=== PATIENT | female | born 1935 | race African-American/Black ===

== ENCOUNTER 2017-02-15 20:32 | Emergency (ER) | payer MEDICARE, MEDICAID ==
[~2017-02-15] VITALS: Ht 157.5 cm; Wt 73.0 kg
[2017-02-15] MEDS ORDERED: DEXTROSE 50% WATER 50ML SYRINGE IV ONE (21:00)
[2017-02-15] MEDS ORDERED: SODIUM CHLORIDE 0.9% 1000ML BAG (SEPSIS BOLUS) IV ONE (21:00)
[2017-02-15 21:59] LABS: PROTHROMBIN TIME 10.7 sec (9.4-11.6)
[2017-02-15 22:00] LABS: CHLORIDE 103 mEq/L (98-107)
[2017-02-15 22:02] LABS: BASOPHILS % 0.5 % (0.0-2.0); EOSINOPHILS % 0.3 % (0.0-5.0); HEMATOCRIT. 43.8 % (36.0-48.0); HEMOGLOBIN. 13.9 g/dL (12.0-16.0); LYMPHOCYTES % 10.4 % (20.0-50.0); MEAN CORPUSCULAR VOLUME 82.1 fL (81.0-99.0); MEAN PLATELET VOLUME 8.7 fl (7.4-10.4); MONOCYTES % 4.8 % (2.0-8.0); PLATELET 273 x1000/uL (130-400); RED BLOOD CELL COUNT 5.34 mill/uL (4.2-5.4); RED CELL DISTRIBUTION WIDTH 15.5 % (11.6-14.6)
[2017-02-15 22:03] LABS: CARBON DIOXIDE 25 mEq/L (21-32)
[2017-02-16 00:30] LABS: GLUCOSE URINE TRACE (NEGATIVE); KETONES URINE NEGATIVE (NEGATIVE); LEUKOCYTE ESTERASE URINE NEGATIVE (NEGATIVE); NITRITE URINE NEGATIVE (NEGATIVE); OCCULT BLOOD URINE NEGATIVE (NEGATIVE); PH URINE 5.5 (4.5-8.0); PROTEIN URINE 1+ (NEGATIVE); SPECIFIC GRAVITY URINE 1.024 (1.005-1.030); UROBILINOGEN URINE 0.2 E.U./dL (0.2-1.0)
[2017-02-16 00:31] LABS: CLARITY URINE CLEAR (CLEAR); COLOR URINE YELLOW (YELLOW)
[2017-02-16 00:48] LABS: *AMPHETAMINES SCREEN URINE NEGATIVE (NEGATIVE); *BARBITURATES SCREEN URINE NEGATIVE (NEGATIVE); *BENZODIAZEPINES SCREEN URINE NEGATIVE (NEGATIVE); *COCAINE SCREEN URINE NEGATIVE (NEGATIVE); CANNABINOID URINE SCREEN PRESUMTIVE POSITIVE (NEGATIVE); METHADONE URINE SCREEN NEGATIVE (NEGATIVE); OPIATES URINE SCREEN NEGATIVE (NEGATIVE); PHENCYCLIDINE URINE SCREEN NEGATIVE (NEGATIVE)
[2017-02-16 08:23] VITALS: BP 166/71
== END 2017-02-16 08:24 | disposition home or self-care (01) ==
LOC: ER 22:19
DX: F12.10 Cannabis abuse, uncomplicated (principal); E11.649 Type 2 diabetes mellitus with hypoglycemia without coma; Z79.4 Long term (current) use of insulin
CPT/HCPCS: 36415; 70450; 71010; 80053; 80305; 81001; 82962; 83605; 85025; 85610; 87040; 87086; 93005; 96360; 96361; 99285; C1893; J7030; J7040; J7050

== ENCOUNTER 2018-04-01 14:44 | Inpatient (IN) | payer MEDICARE, MEDICAID ==
[~2018-04-01] VITALS: Ht 154.9 cm; Wt 60.8 kg
[2018-04-01] MEDS ORDERED: SODIUM CHLORIDE 0.9% 1,000 ML IV ONE (15:36)
[2018-04-01 16:58] LABS: BASOPHILS % 0.8 % (0.0-2.0); EOSINOPHILS % 0.1 % (0.0-5.0); HEMATOCRIT. 37.1 % (36.0-48.0); HEMOGLOBIN. 11.9 g/dL (12.0-16.0); LYMPHOCYTES % 9.1 % (20.0-50.0); MEAN PLATELET VOLUME 8.2 fl (7.4-10.4); MONOCYTES % 5.1 % (2.0-8.0); NEUTROPHILS % 84.9 % (40.0-76.0); PLATELET 253 x1000/uL (130-400); RED BLOOD CELL COUNT 4.41 mill/uL (4.2-5.4); RED CELL DISTRIBUTION WIDTH 16.5 % (11.6-14.6)
[2018-04-01 17:07] LABS: CHLORIDE 105 mEq/L (98-107)
[2018-04-01 17:09] LABS: PROTHROMBIN TIME 9.9 sec (9.1-11.1)
[2018-04-01 17:15] LABS: CREATINE KINASE 63 IU/L (26-192)
[2018-04-01] MEDS ORDERED: SODIUM CHLORIDE 0.9% 1000ML BAG (SEPSIS BOLUS) IV ONE (17:45)
[2018-04-01 18:11] LABS: CLARITY URINE CLOUDY (CLEAR); COLOR URINE YELLOW (YELLOW); KETONES URINE TRACE (NEGATIVE); LEUKOCYTE ESTERASE URINE 2+ (NEGATIVE); NITRITE URINE POSITIVE (NEGATIVE); OCCULT BLOOD URINE NEGATIVE (NEGATIVE); PH URINE 6.5 (4.5-8.0); PROTEIN URINE 1+ (NEGATIVE); SPECIFIC GRAVITY URINE 1.013 (1.005-1.030)
[2018-04-01] MEDS ORDERED: CEFTRIAXONE 1 G PREMIX 50 ML IV ONE (18:30)
[2018-04-01 21:40] VITALS: BP 160/67
[2018-04-01 22:00] VITALS: BP 160/67
[2018-04-01] MEDS ORDERED: NA PHOS,M-B/NA PHOS,DI-BA ENEMA 118ML PR PRN (23:00)
[2018-04-01] MEDS ORDERED: MORPHINE SULFATE 4 MG/ML CPJ (NOT FOR IM USE) IV PRN (23:00)
[2018-04-01] MEDS ORDERED: IPRATROPIUM/ALBUTEROL 0.5-3(2.5)MG/3ML NEB INH PRN (23:00)
[2018-04-01] MEDS ORDERED: HYDROCODONE/ACETAMINOPHEN 5/325MG TABLET PO PRN (23:00)
[2018-04-01] MEDS ORDERED: DIPHENHYDRAMINE 50MG/ML VIAL IV PRN (23:00)
[2018-04-01] MEDS ORDERED: DOCUSATE SODIUM 100MG CAPSULE PO PRN (23:00)
[2018-04-01] MEDS ORDERED: MAGNESIUM/ALUMINUM HYDROXIDE/SIMETHICONE 30ML UDC PO PRN (23:00)
[2018-04-01] MEDS ORDERED: ACETAMINOPHEN 325MG TABLET PO PRN (23:00)
[2018-04-01] MEDS ORDERED: ONDANSETRON HCL 4MG/2ML INJ IV PRN (23:00)
[2018-04-01] MEDS ORDERED: LORAZEPAM 2MG/ML CPJ IV PRN (23:00)
[2018-04-01] MEDS ORDERED: GUAIFENESIN 200MG/10ML SUGAR FREE UDC PO PRN (23:00)
[2018-04-01] MEDS ORDERED: DEXTROSE 50% WATER 50ML SYRINGE IV PRN (23:30)
[2018-04-02] VITALS: BP 171/59
[2018-04-02] MEDS: INSULIN LISPRO 100 UNITS/ML SUBCUT SCH ×5 (00:24→22:14)
[2018-04-02] MEDS: SODIUM CHLORIDE 0.45% 1,000 ML IV SCH (00:25)
[2018-04-02] MEDS ORDERED: LEVOFLOXACIN 500MG PREMIX 100 ML IV NR (01:00)
[2018-04-02 04:00] VITALS: BP 149/71
[2018-04-02] MEDS: BLOOD SUGAR DIAGNOSTIC STRIP TEST SCH ×5 (07:46→21:00)
[2018-04-02 07:47] LABS: BASOPHILS % 0.6 % (0.0-2.0); EOSINOPHILS % 0.9 % (0.0-5.0); HEMATOCRIT. 36.2 % (36.0-48.0); HEMOGLOBIN. 11.9 g/dL (12.0-16.0); LYMPHOCYTES % 23.2 % (20.0-50.0); MEAN CORPUSCULAR HEMOGLOBIN 27.4 pg (28.0-32.0); MEAN PLATELET VOLUME 8.1 fl (7.4-10.4); NEUTROPHILS % 65.3 % (40.0-76.0); PLATELET 257 x1000/uL (130-400); RED BLOOD CELL COUNT 4.36 mill/uL (4.2-5.4)
[2018-04-02 07:57] LABS: CHLORIDE 104 mEq/L (98-107)
[2018-04-02 08:00] VITALS: BP 200/74
[2018-04-02 08:17] LABS: HDL CHOLESTEROL 82 mg/dL (40-59); LDL CHOLESTEROL 91 mg/dL (5-100)
[2018-04-02] MEDS: ENOXAPARIN 40MG/0.4ML SYR SUBCUT SCH (09:51)
[2018-04-02] MEDS: ASPIRIN 81MG EC TABLET PO SCH (09:51)
[2018-04-02 11:24] LABS: T4 FREE 1.24 ng/dL (0.76-1.46)
[2018-04-02 12:00] VITALS: BP 152/62
[2018-04-02 16:00] VITALS: BP 194/69
[2018-04-02 16:13] LABS: CREATINE KINASE 49 IU/L (26-192); CREATINE KINASE MB FRACTION < 1.0 ng/mL (0.5-3.6)
[2018-04-02 20:00] VITALS: BP_SYST 157; BP_SYST 197; BP_DIAS 61; BP_DIAS 88
[2018-04-02] MEDS: LEVOFLOXACIN 250MG PREMIX 50 ML IV SCH (22:21)
[2018-04-03] VITALS (7 sets, daily range): BP systolic 139–180; BP diastolic 52–87
[2018-04-03 01:27] LABS: CREATINE KINASE 39 IU/L (26-192); CREATINE KINASE MB FRACTION < 1.0 ng/mL (0.5-3.6)
[2018-04-03] MEDS: SODIUM CHLORIDE 0.45% 1,000 ML IV SCH ×2 (02:47→23:24)
[2018-04-03] MEDS: BLOOD SUGAR DIAGNOSTIC STRIP TEST SCH ×4 (06:58→21:12)
[2018-04-03] MEDS: INSULIN LISPRO 100 UNITS/ML SUBCUT SCH ×4 (08:10→21:18)
[2018-04-03] MEDS: ASPIRIN 81MG EC TABLET PO SCH (08:57)
[2018-04-03] MEDS: ENOXAPARIN 40MG/0.4ML SYR SUBCUT SCH (08:57)
[2018-04-03 09:37] LABS: CREATINE KINASE MB FRACTION 1.1 ng/mL (0.5-3.6)
[2018-04-03] MEDS: CLONIDINE 0.1MG TABLET PO PRN ×2 (18:49→23:38)
[2018-04-03] MEDS: LEVOFLOXACIN 250MG PREMIX 50 ML IV SCH (23:24)
[2018-04-04 04:00] VITALS: BP 140/60
[2018-04-04] MEDS: BLOOD SUGAR DIAGNOSTIC STRIP TEST SCH ×4 (07:59→21:44)
[2018-04-04 08:00] VITALS: BP 145/49
[2018-04-04] MEDS: ENOXAPARIN 40MG/0.4ML SYR SUBCUT SCH (08:59)
[2018-04-04] MEDS: ASPIRIN 81MG EC TABLET PO SCH (08:59)
[2018-04-04] MEDS: INSULIN LISPRO 100 UNITS/ML SUBCUT SCH ×4 (08:59→21:55)
[2018-04-04 12:00] VITALS: BP_SYST 164; BP_SYST 168; BP_SYST 192; BP_DIAS 69; BP_DIAS 77; BP_DIAS 88
[2018-04-04] MEDS: CLONIDINE 0.1MG TABLET PO PRN ×2 (13:20→21:55)
[2018-04-04 16:00] VITALS: BP 137/64
[2018-04-04 20:00] VITALS: BP 178/72
[2018-04-04] MEDS: SODIUM CHLORIDE 0.45% 1,000 ML IV SCH (23:53)
[2018-04-04] MEDS: LEVOFLOXACIN 250MG PREMIX 50 ML IV SCH (23:53)
[2018-04-05] VITALS: BP 102/80
[2018-04-05 04:00] VITALS: BP_SYST 148; BP_SYST 152; BP_SYST 155; BP_DIAS 55; BP_DIAS 60; BP_DIAS 62
[2018-04-05] MEDS: BLOOD SUGAR DIAGNOSTIC STRIP TEST SCH ×2 (05:34→12:11)
[2018-04-05 06:26] VITALS: BP 148/55
[2018-04-05 08:00] VITALS: BP 147/56
[2018-04-05] MEDS: ASPIRIN 81MG EC TABLET PO SCH (08:57)
[2018-04-05] MEDS: ENOXAPARIN 40MG/0.4ML SYR SUBCUT SCH (08:57)
[2018-04-05] MEDS: INSULIN LISPRO 100 UNITS/ML SUBCUT SCH ×2 (08:58→13:13)
[2018-04-05 12:00] VITALS: BP_SYST 186; BP_SYST 193; BP_DIAS 66; BP_DIAS 71; BP_DIAS 81
[2018-04-05] MEDS: CLONIDINE 0.1MG TABLET PO PRN (12:11)
== END 2018-04-05 14:10 | disposition home or self-care (01) | DRG 640 ==
LOC: ER 14:44 → 7WST 18:57 → EDBEDREQ 19:04 → EDBEDREQTM 19:04 → ENRESERV 20:59
PROVIDERS: ADMIT Internal Medicine; ATTEND Internal Medicine
DX: E86.0 Dehydration (principal); G93.41 Metabolic encephalopathy; N39.0 Urinary tract infection, site not specified; R65.10 Systemic inflammatory response syndrome (SIRS) of non-infectious origin without acute organ dysfunction; G31.9 Degenerative disease of nervous system, unspecified; I10 Essential (primary) hypertension; E11.9 Type 2 diabetes mellitus without complications; E78.5 Hyperlipidemia, unspecified; W18.39XA Other fall on same level, initial encounter; Y93.89 Activity, other specified; Y92.89 Other specified places as the place of occurrence of the external cause; Y99.8 Other external cause status; Z91.81 History of falling
CPT/HCPCS: 36415; 71045; 80061; 82550; 82553; 82962; 83036; 83605; 83880; 84439; 84443; 84484; 85379; 87077; 87186; 93005; 93306; 93880; 93970; 96361; 96365; 96366; 99291; J0696; J1650; J1815; J1956; J7030